=== PATIENT | male | born 2000 | race Two or more races ===

== ENCOUNTER 2018-03-19 17:11 | Emergency (ER) | payer BC ==
[2018-03-19] MEDS ORDERED: Lidocaine 1% (PF) 30 ML VIAL ONE (17:58)
[2018-03-19] MEDS ORDERED: Adacel (T-DAP) 0.5 ML SYRINGE ONE (17:58)
--- NOTE | 2018-03-19 18:28 | RAD ---
THREE VIEWS RIGHT HAND: 03/19/18 HISTORY: Cut right hand on metal post. Laceration to thumb. FINDINGS: There is a lucency overlying the base of the thumb likely related to gas in the subcutaneous soft tis sues related to patient's laceration. The lateral view of the hand demonstrates tiny linear subtle ra diopaque densities which could be related to either overlying artifact or tiny radiopaque foreign bod ies at the level of laceration. No underlying fracture is identified. There is a tiny, approximately 2 mm metallic foreign body seen within the lateral and volar subcutane ous soft tissues of the mid portion of the thumb. No other osseous abnormality seen and there is no d islocation. IMPRESSION: 1. No acute fracture visualized. 2. Lucency base of thumb likely attributable to patient's known laceration. 3. Subtle tiny linear radiopaque densities overlying the region of the subcutaneous gas only see n on the lateral view which could represent either overlying artifact or tiny radiopaque foreign bodi es. 4. Tiny metallic foreign body in the subcutaneous soft tissues at the level of the mid right carlton darlene. POS: [facility]
--- NOTE | 2018-03-19 19:46 | RAD ---
THREE VIEWS RIGHT HAND 03/19/18 HISTORY: Foreign body removal. COMPARISON: 03/19/18 at 1739 hours. FINDINGS: The tiny metallic foreign body in the subcutaneous soft tissues mid right thumb is no longer visualiz ed likely related to interval removal. However, there are subtle linear densities again seen overlyin g the subcutaneous soft tissues right thumb at the level of the metacarpophalangeal joint also seen o n the prior exam and only seen on lateral view which could represent tiny radiopaque foreign bodies i n this region. The lucency related to laceration is again seen at the base is again seen involving th e proximal thumb. No other interval change. IMPRESSION: 1. Interval removal tiny metallic foreign body overlying the subcutaneous soft tissues mid right thumb. 2. Tiny radiopaque densities adjacent to the metacarpophalangeal joint and proximal phalanx of t he right thumb which may represent tiny radiopaque foreign bodies and are stable from prior study. 3. No evidence of a fracture. POS: [facility]
[2018-03-19] MEDS ORDERED: Bacitracin Zinc 1 Packet ONE (20:10)
== END 2018-03-19 20:34 | disposition home or self-care (01) ==
LOC: ERS 17:11
DX: S61.021A Laceration with foreign body of right thumb without damage to nail, initial encounter (principal); W26.8XXA Contact with other sharp object(s), not elsewhere classified, initial encounter
CPT/HCPCS: 12002; 90715; J2001